=== PATIENT | female | born 2000 | race American Indian/Alaskan Native ===

== ENCOUNTER 2020-10-16 20:45 | Emergency (ER) | payer OTHER ==
[2020-10-16 21:38] VITALS: BP 128/74
[2020-10-16] MEDS ORDERED: ACETAMINOPHEN 500 MG TAB PO ONE (22:11)
[2020-10-16] MEDS ORDERED: IBUPROFEN 600 MG TAB PO ONE (22:11)
--- NOTE | 2020-10-16 22:58 | XRay Report ---
Pelvis and right hip 2 views INDICATION: Hip pain FINDINGS: Bilateral femoral heads well-seated in the acetabulum. Superior and inferior pubic rami leo ear intact. Sacrum appears normal. IMPRESSION: No acute findings. Signer Name: Alessandro Zimmerman MD Signed: 10/16/2020 10:54 PM Workstation Name: [id number]
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
== END 2020-10-17 01:25 | disposition home or self-care (01) ==
LOC: ED 20:45
DX: S73.101A Unspecified sprain of right hip, initial encounter (principal); S86.911A Strain of unspecified muscle(s) and tendon(s) at lower leg level, right leg, initial encounter; G44.319 Acute post-traumatic headache, not intractable; Z79.899 Other long term (current) drug therapy; V49.59XA Passenger injured in collision with other motor vehicles in traffic accident, initial encounter; Y92.410 Unspecified street and highway as the place of occurrence of the external cause; Y93.89 Activity, other specified; Y99.8 Other external cause status
CPT/HCPCS: 70450

== ENCOUNTER 2020-12-23 13:53 | Emergency (ER) | payer OTHER | END 2020-12-23 17:36 | disposition left against medical advice (07) | LOC: ED 13:53 | DX: Z34.90 Encounter for supervision of normal pregnancy, unspecified, unspecified trimester (principal); Z53.21 Procedure and treatment not carried out due to patient leaving prior to being seen by health care provider ==

== ENCOUNTER 2021-01-04 20:23 | Emergency (ER) | payer OTHER ==
[2021-01-04 21:26] VITALS: BP 136/68
[2021-01-04] MEDS ORDERED: ONDANSETRON 4 MG ODT TAB PO ONE (22:15)
[2021-01-04] MEDS ORDERED: ALUM-MAG HYDROXIDE-SIMETHICONE 200-200-20MG/5ML ORAL LIQD 30 ML PO ONE (22:15)
--- NOTE | 2021-01-04 22:21 | Emergency Department Report ---
ED HPI - General Chief complaint: Abdominal Pain Stated complaint: PAINS Time Seen by Provider: 01/04/21 22:05 Source: patient Mode of arrival: Ambulatory Limitations: No Limitations - History of Present Illness Initial comments: 20-year-old female presents to the hospital with complaints of ongoing abdominal pain. November 03 with estimated gestational age of 8 weeks and 6 days. Patient complains of daily episodes of upper left, right, and middle sharp intermittent abdominal pain. Patient initially thought it was gas type of pain. She is not currently taking any medications. No aggravating alleviating factors reported. Patient having almost daily nausea and vomiting throughout her . Last vomiting episode was yesterday. Patient has been unable to obtain care at this time. Patient expresses concerns about the baby. She denies vaginal bleeding, fever, diarrhea, or previous surgeries but is her second and she has 1 living child without history of ectopic or miscarriage - Related Data Previous Rx's Medication Instructions Recorded Last Taken Type Ibuprofen [Motrin] 600 mg PO Q8H PRN #30 tablet 10/16/20 Unknown Rx RX: Baclofen [Lioresal] 10 mg PO TID PRN #15 tab 10/16/20 Unknown Rx Nitrofurantoin Polk/M-Cryst 100 mg PO Q12HR #14 capsule 01/05/21 Unknown Rx [Macrobid CAP] Allergies Allergy/AdvReac Type Severity Reaction Status Date / Time No Known Allergies Allergy Unverified 10/16/20 21:34 ED Review of Systems ROS: Stated complaint: PAINS Other details as noted in HPI Comment: All other systems reviewed and negative ED Past Medical Hx - Past Medical History Additional medical history: heart mur mur - Medications Home Medications: Home Medications Medication Instructions Recorded Confirmed Last Taken Type Ibuprofen [Motrin] 600 mg PO Q8H PRN #30 tablet 10/16/20 Unknown Rx RX: Baclofen [Lioresal] 10 mg PO TID PRN #15 tab 10/16/20 Unknown Rx Nitrofurantoin Polk/M-Cryst 100 mg PO Q12HR #14 capsule 01/05/21 Unknown Rx [Macrobid CAP] ED Physical Exam - General Limitations: No Limitations - Other Other exam information: General: No acute distress Head: Atraumatic Eyes: normal appearance ENT: Moist mucous membranes Neck: Normal appearance, no midline tenderness Chest: Clear to auscultation bilaterally CV: Regular rate and rhythm Abdomen: Soft, normal bowel sounds, mild epigastric tendernes, no rebound or guarding Back: Normal inspection Extremity: Normal inspection, full range of motion Neuro: Alert O x 3, no facial asymmetry, speech clear, no gross motor sensory deficit Psych: Appropriate behavior Skin: No rash ED Course Vital Signs 01/04/21 21:22 Temperature 98.7 F Pulse Rate 70 Respiratory 16 Rate Blood Pressure 136/68 [Right] O2 Sat by Pulse 99 Oximetry - Reevaluation(s) Reevaluation #1: 01/05/21 01:06 i was informed that pt left (after I realized that the US was cancelled) I called pt and she states she left because it was taking too long. I informed her that she has urinary tract infection and needs antibiotics treatment due to risk of labor. We unable to confirm location of status of her without ultrasound. she is requesting to tack picker a prescription in the morning. She did not receive Macrobid prior to elopement ED Medical Decision Making - Lab Data Result diagrams: 01/04/21 22:27 01/04/21 22:27 Lab Results 01/04/21 01/04/21 01/04/21 Range/Units 22:27 22:27 22:27 WBC 10.4 (4.5-11.0) K/mm3 RBC 4.51 (3.65-5.03) M/mm3 Hgb 12.7 (10.1-14.3) gm/dl Hct 39.4 (30.3-42.9) % MCV 87 (79-97) fl MCH 28 (28-32) pg MCHC 32 (30-34) % RDW 16.0 H (13.2-15.2) % Plt Count 281 (140-440) K/mm3 Lymph % (Auto) 19.6 (13.4-35.0) % Polk % (Auto) 5.6 (0.0-7.3) % Eos % (Auto) 0.3 (0.0-4.3) % Baso % (Auto) 0.5 (0.0-1.8) % Lymph # (Auto) 2.0 (1.2-5.4) K/mm3 Polk # (Auto) 0.6 (0.0-0.8) K/mm3 Eos # (Auto) 0.0 (0.0-0.4) K/mm3 Baso # (Auto) 0.1 (0.0-0.1) K/mm3 Seg Neutrophils % 74.0 H (40.0-70.0) % Seg Neutrophils # 7.7 (1.8-7.7) K/mm3 Sodium 138 (137-145) mmol/L Potassium 3.9 (3.6-5.0) mmol/L Chloride 103.4 (98-107) mmol/L Carbon Dioxide 22 (22-30) mmol/L Anion Gap 17 mmol/L BUN 6 L (7-17) mg/dL Creatinine 0.6 (0.6-1.2) mg/dL Estimated GFR > 60 ml/min BUN/Creatinine Ratio 10 % Glucose 83 (65-100) mg/dL Calcium 9.4 (8.4-10.2) mg/dL Total Bilirubin < 0.20 (0.1-1.2) mg/dL AST 14 (5-40) units/L ALT 9 (7-56) units/L Alkaline Phosphatase 85 (35-129) units/L Total Protein 7.9 (6.3-8.2) g/dL Albumin 4.4 (3.9-5) g/dL Albumin/Globulin Ratio 1.3 % Lipase (13-60) units/L HCG, Quant 13689 H (0-4) mIU/mL Urine Color (Yellow) Urine Turbidity (Clear) Urine pH (5.0-7.0) Ur Specific Fraser (1.003-1.030) Urine Protein (Negative) mg/dL Urine Glucose (UA) (Negative) mg/dL Urine Ketones (Negative) mg/dL Urine Blood (Negative) Urine Nitrite (Negative) Urine Bilirubin (Negative) Urine Urobilinogen (<2.0) mg/dL Ur Leukocyte Esterase (Negative) Urine WBC (Auto) (0.0-6.0) /HPF Urine RBC (Auto) (0.0-6.0) /HPF U Epithel Cells (Auto) (0-13.0) /HPF Urine Bacteria (Auto) (Negative) /HPF Urine Mucus /HPF Urine Yeast (Budding) /HPF 01/04/21 01/04/21 Range/Units 22:27 22:39 WBC (4.5-11.0) K/mm3 RBC (3.65-5.03) M/mm3 Hgb (10.1-14.3) gm/dl Hct (30.3-42.9) % MCV (79-97) fl MCH (28-32) pg MCHC (30-34) % RDW (13.2-15.2) % Plt Count (140-440) K/mm3 Lymph % (Auto) (13.4-35.0) % Polk % (Auto) (0.0-7.3) % Eos % (Auto) (0.0-4.3) % Baso % (Auto) (0.0-1.8) % Lymph # (Auto) (1.2-5.4) K/mm3 Polk # (Auto) (0.0-0.8) K/mm3 Eos # (Auto) (0.0-0.4) K/mm3 Baso # (Auto) (0.0-0.1) K/mm3 Seg Neutrophils % (40.0-70.0) % Seg Neutrophils # (1.8-7.7) K/mm3 Sodium (137-145) mmol/L Potassium (3.6-5.0) mmol/L Chloride (98-107) mmol/L Carbon Dioxide (22-30) mmol/L Anion Gap mmol/L BUN (7-17) mg/dL Creatinine (0.6-1.2) mg/dL Estimated GFR ml/min BUN/Creatinine Ratio % Glucose (65-100) mg/dL Calcium (8.4-10.2) mg/dL Total Bilirubin (0.1-1.2) mg/dL AST (5-40) units/L ALT (7-56) units/L Alkaline Phosphatase (35-129) units/L Total Protein (6.3-8.2) g/dL Albumin (3.9-5) g/dL Albumin/Globulin Ratio % Lipase 13 (13-60) units/L HCG, Quant (0-4) mIU/mL Urine Color Yellow (Yellow) Urine Turbidity Slightly-cloudy (Clear) Urine pH 6.0 (5.0-7.0) Ur Specific Fraser 1.016 (1.003-1.030) Urine Protein <15 mg/dl (Negative) mg/dL Urine Glucose (UA) Neg (Negative) mg/dL Urine Ketones Neg (Negative) mg/dL Urine Blood Neg (Negative) Urine Nitrite Neg (Negative) Urine Bilirubin Neg (Negative) Urine Urobilinogen 2.0 (<2.0) mg/dL Ur Leukocyte Esterase Mod (Negative) Urine WBC (Auto) 20.0 H (0.0-6.0) /HPF Urine RBC (Auto) 3.0 (0.0-6.0) /HPF U Epithel Cells (Auto) 9.0 (0-13.0) /HPF Urine Bacteria (Auto) 2+ (Negative) /HPF Urine Mucus Few /HPF Urine Yeast (Budding) Few /HPF - Medical Decision Making 20-year-old female presents to the hospital expressing concern about baby due to persistent abdominal pain and delay in her ability to obtain care. Labs reveal UTI. Patient did not receive ultrasound prior to elopement. I called patient and she requests to return in the a.m. to tack picker her prescription for UTI. Outpatient follow-up will be provided on elopement discharge instructions. Critical Care Time: No Critical care attestation.: If time is entered above; I have spent that time in minutes in the direct care of this critically ill patient, excluding procedure time. ED Disposition Clinical Impression: , UTI (urinary tract infection), Abdominal pain Disposition: 07 LEFT AWOL/ELOPED Is pt being admited?: No Does the pt Need Aspirin: No Condition: Stable Instructions: Abdominal Pain (ED), Urinary Tract Infection, Adult, Abdominal Pain During Additional Instructions: Take the medication as prescribed. Take [id number] vitamins We were unable to perform ultrasound because you left the department before your work-up was complete. Therefore, we cannot confirm the location and status of your . follow-up with [facility] for further evaluation. You may return here to complete your workup if symptoms worsen or continue Prescriptions: Nitrofurantoin Polk/M-Cryst [Macrobid CAP] 100 mg PO Q12HR #14 capsule Referrals: PRIMARY CAREMD [Primary Care Provider] - 3-5 Days MALLORIE BRIDGES MD [Staff Physician] - 3-5 Days Time of Disposition: 01:11
[2021-01-04 22:51] LABS: Bacteria,Urine 2+ /HPF (Negative); Bilirubin,Urine NEG (Negative); Blood,Urine NEG (Negative); Color,Urine Yellow (Yellow); Mucus,Urine FEW /HPF; Protein,Urine <15 mg/dL mg/dL (Negative)
[2021-01-04 23:28] LABS: Alanine Aminotransferase 9 units/L (7-56); Albumin 4.4 g/dL (3.9-5); Blood Urea Nitrogen 6 mg/dL (7-17); Calcium 9.4 mg/dL (8.4-10.2); Hemolysis Index 4
[2021-01-04 23:29] LABS: BUN/Creatinine Ratio 10
[2021-01-04 23:34] LABS: Basophils # (Auto) 0.1 K/mm3 (0.0-0.1); Basophils % (Auto) 0.5 % (0.0-1.8); Eosinophils % (Auto) 0.3 % (0.0-4.3); Hematocrit 39.4 % (30.3-42.9); Hemoglobin 12.7 gm/dl (10.1-14.3); Lymphocytes % (Auto) 19.6 % (13.4-35.0); Mean Corpuscular HGB Conc 32 % (30-34); Mean Corpuscular Volume 87 fl (79-97); Monocytes # (Auto) 0.6 K/mm3 (0.0-0.8); Monocytes % (Auto) 5.6 % (0.0-7.3); Platelet Count 281 K/mm3 (140-440); Red Blood Count 4.51 M/mm3 (3.65-5.03)
[2021-01-04] MEDS ORDERED: NITROFURANTOIN MONOHYD/M-CRYST 100 MG CAP PO ONE (23:47)
== END 2021-01-05 02:46 | disposition left against medical advice (07) ==
LOC: ED 20:23
DX: O23.41 Unspecified infection of urinary tract in pregnancy, first trimester (principal); N39.0 Urinary tract infection, site not specified; O26.891 Other specified pregnancy related conditions, first trimester; R10.9 Unspecified abdominal pain; Z3A.08 8 weeks gestation of pregnancy
CPT/HCPCS: 36415; 80053; 81001; 83690; 84702; 85025; 87086; 99283; J3490; Q0162

== ENCOUNTER 2021-01-08 06:00 | Emergency (ER) | payer OTHER | END 2021-01-08 07:45 | disposition left against medical advice (07) | LOC: ED 06:00 | DX: R10.9 Unspecified abdominal pain (principal); R11.10 Vomiting, unspecified; Z53.21 Procedure and treatment not carried out due to patient leaving prior to being seen by health care provider ==